=== PATIENT | female | born 1985 | race Caucasian/White ===

== ENCOUNTER 2018-07-17 07:24 | Inpatient (IN) | payer BC ==
[2018-07-17 08:13] VITALS: BMI 28.3
[2018-07-17] MEDS: Lactated Ringer's 1,000 ML IV SCH ×2 (08:30→16:30)
[2018-07-17 09:22] LABS: HEMOGLOBIN 13.1 g/dL (12.0-16.0); MEAN CELL VOLUME 94.4 fl (81.0-99.0); MEAN CORPUSCULAR HEMOGLOBIN 33.2 pg (27.0-31.0); MEAN CORPUSCULAR HGB CONC 35.2 g/dL (33.0-37.0); RBC 3.95 Mil/uL (3.80-5.20); RED CELL DISTRIBUTION WIDTH 13.1 % (11.5-14.5); WHITE BLOOD COUNT 9.8 K/uL (4.8-10.8)
[2018-07-17] MEDS ORDERED: Lactated Ringer's 1,000 ML IV SCH (14:45)
[2018-07-17] MEDS ORDERED: Fentanyl/Bupivacaine HCl 250 ML EPI ONE (15:06)
[2018-07-17] MEDS ORDERED: Nalbuphine 20 mg/ml Inj (1 ml) IVP PRN (17:37)
[2018-07-17] MEDS ORDERED: Nalbuphine 20 mg/ml Inj (10 ml) ONE (17:45)
[2018-07-17] MEDS ORDERED: Nalbuphine HCL 10 mg/ml Ampule IVP PRN (18:00)
[2018-07-17] MEDS ORDERED: Oxytocin 30 UNIT 30 UNITS/500 ML BAG IV ONE (19:33)
[2018-07-17] MEDS ORDERED: Propofol 10 mg/ml Inj (20 ML) ONE (19:41)
[2018-07-17] MEDS ORDERED: OXYTOCIN/0.9 % NS 20 UNIT/1,000 ML BAG IV SCH (19:45)
[2018-07-17] MEDS ORDERED: Oxytocin 30 UNIT 0 UNITS/0 ML BAG IV ONE (19:49)
[2018-07-17] MEDS ORDERED: Povidone Iodine 5% Spr TP ONE (19:52)
[2018-07-17] MEDS ORDERED: cefOXitin Sodium 1 GM in Sodium Chloride 0.9% 100 ML IVPB ONE (20:00)
--- NOTE | 2018-07-17 20:29 | OBDS ---
MATERNAL INFORMATION Estimated Blood Loss (ml): 200 Maternal Complications: None Provider Comments: delivery of still born girl after which placenta was removed mannually und er anesthesia LABOR SUMMARY EDC: 12/23/2018 00:00 No. Babies in Womb: 1 LABOR INFORMATION Reason for Induction: Not Applicable Cervical Ripening Agents: Cytotec @ (Annotations: 400 mcg applied vaginally by ) Group B Beta Strep: Not Done VAGINAL DELIVERY Episiotomy: None Laceration Extension: N/A Laceration Type: None Laceration Repair Note: none Count Comment: correct
[2018-07-17] MEDS ORDERED: Benzocaine/Menthol SPRAY TOP PRN (20:31)
[2018-07-17] MEDS ORDERED: OXYTOCIN/0.9 % NS 20 UNIT/1,000 ML BAG IV ONE (20:31)
[2018-07-17] MEDS ORDERED: Oxycodone/Acetaminophen 5/325 mg Tab PO PRN (20:31)
[2018-07-18] MEDS ORDERED: Lactated Ringer's 1,000 ML IV SCH ×2 (04:25)
[2018-07-18] MEDS ORDERED: Nalbuphine HCL 10 mg/ml Ampule IVP PRN (04:25)
[2018-07-18] MEDS ORDERED: Oxycodone/Acetaminophen 5/325 mg Tab PO PRN (07:06)
[2018-07-18] MEDS ORDERED: Influenza Vaccine (5 YR UP)/PF 60 MCG/0.5 ML SYR IM ONE (08:13)
[2018-07-18] MEDS ORDERED: Pneumococcal 23-Valent Vaccine IM ONE (08:13)
[2018-07-18] MEDS ORDERED: Influenza Vaccine 60 mcg/0.5 mL SYR (4YR UP) IM ONE (08:30)
[2018-07-18 09:50] LABS: BASO % 0.5 % (0.0-2.0); EOS # 0.1 K/uL (0.0-0.7); EOS % 1.8 % (0.0-4.0); HEMOGLOBIN 10.7 g/dL (12.0-16.0); LYMPH # 1.4 K/uL (1.0-4.3); LYMPH % 16.9 % (20.0-40.0); MEAN CELL VOLUME 95.5 fl (81.0-99.0); MEAN CORPUSCULAR HEMOGLOBIN 33.4 pg (27.0-31.0); MEAN CORPUSCULAR HGB CONC 34.9 g/dL (33.0-37.0); MEAN PLATELET VOLUME 9.1 fl (7.2-11.7); MONO # 0.5 K/uL (0.0-0.8); MONO % 6.1 % (0.0-10.0); NEUT # 6.1 K/uL (1.8-7.0); NEUT % 74.7 % (50.0-75.0); RBC 3.2 Mil/uL (3.80-5.20); WHITE BLOOD COUNT 8.2 K/uL (4.8-10.8)
--- NOTE | 2018-07-18 11:20 | OBDCSUM ---
Datetime: 07/18/2018 10:46 Discharged to, Provider: Home Follow up at, Provider: Dr. Lucas Disch Instr Activity: Normal activity Disch Instr Diet: Regular Discharge Instructions, Provider: Routine instructions given Discharge Diagnosis, Provider: Missed Discharge Time: 07/18/2018 11:00 Follow up in weeks, Provider: in two weeks Disch Referrals: None Contraception discussed, Prov: Yes Discharge Comment, Provider: S/P SPontaneous delivery of IUFD, CLinically Stable Discharge Diagnosis Prov Other: S/P SPontaneous delivery of IUFD, CLinically Stable
[2018-07-18 15:44] VITALS: BP 117/58; PULSE 81; RESP 18; TEMP 98.2; O2SAT 99
--- NOTE | 2018-07-20 10:11 | OBPPN ---
Datetime: 07/18/2018 11:09 PP Pain Prov: Within normal limits PP Nausea Prov: Denies PP Flatus Prov: Yes PP Breasts Prov: Normal PP Heart Prov: Normal PP Lungs Prov: Normal PP Abdomen/Uterus Prov: Normal PP Lochia Prov: Normal PP Vulva/Perineum Prov: Normal PP CVA Tenderness Prov: Normal PP Extremities Prov: Normal PP C/S Incision Prov: Normal PP Progress Prov: Normal PP Comments Phys Exam Prov: Abd: Soft, NT, BS- present UT- Firm PP Impression Prov: Normal progression PP Plan Prov: Discharge PP Progress Note Prov: S/P Spontaneous delivery of IUFD Patient reports feeling well and requests discharge home. Clinically Stable. Plan: Discharge Home. Follow up with Dr Meyer in 2 weeks IP PP Procedures: Rhogam Vital Signs Provider PP: Reviewed
--- NOTE | 2018-07-20 20:42 | OP ---
PROCEDURE DATE: 07/17/2018 PREOPERATIVE DIAGNOSES: Missed and retained placenta. POSTOPERATIVE DIAGNOSES: Missed and retained placenta. SURGEON: Landen Lucas MD ANESTHESIOLOGIST: Dr. Lozoya ANESTHESIA: General anesthesia. PROCEDURE: Dilatation and curettage, held retaining placenta. DESCRIPTION OF PROCEDURE: With the patient in dorsal lithotomy position and under general anesthesia, the patient was prepped and draped in the usual sterile manner. A speculum was placed in the vagina, and the anterior cervix was grasped with single-tooth tenaculum. The placenta was coming out in pieces; however, the last whole piece was then removed intact. After this was done, a large curettage was done to remove any remaining placenta. Estimated blood loss was minimal. The patient tolerated the procedure well and was in satisfactory condition on the way to recovery room. Landen Lucas MD
== END 2018-07-18 11:20 | disposition home or self-care (01) | DRG 807 ==
LOC: H.EROB2 07:24 → H.EROB 08:09
PROVIDERS: ADMIT Specialist; ATTEND Specialist
PROC: 10D07Z8 Extraction of Products of Conception, Other, Via Natural or Artificial Opening (ICD-10-PCS; principal; 2018-07-17)
PROC: 3E0234Z Introduction of Serum, Toxoid and Vaccine into Muscle, Percutaneous Approach (ICD-10-PCS; 2018-07-17)
PROC: 3E02340 Introduction of Influenza Vaccine into Muscle, Percutaneous Approach (ICD-10-PCS; 2018-07-17)
DX: O02.1 Missed abortion (principal); Z37.1 Single stillbirth; Z23 Encounter for immunization; O73.0 Retained placenta without hemorrhage; Z3A.25 25 weeks gestation of pregnancy